=== PATIENT | female | born 2000 | race African-American/Black ===

== ENCOUNTER 2021-01-22 10:00 | Emergency (ER) | payer OTHER ==
--- NOTE | 2021-01-22 10:49 | RAD ---
EXAM: XR Knee Rt 4 View STANDARD PROVIDED CLINICAL HISTORY: Pain FINDINGS: There is no evidence for fracture or other acute osseous abnormality. Alignment appears anatomic. Harriet nt spaces appear preserved. IMPRESSION: No evidence for an acute osseous abnormality. If there is persistent clinical concern, conservative m anagement and follow-up imaging advised.
== END 2021-01-22 11:07 | disposition home or self-care (01) ==
LOC: NAV ERS 10:00
DX: S83.91XA Sprain of unspecified site of right knee, initial encounter (principal); V47.5XXA Car driver injured in collision with fixed or stationary object in traffic accident, initial encounter

== ENCOUNTER 2021-01-24 22:20 | Emergency (ER) | payer OTHER | END 2021-01-24 22:47 | disposition home or self-care (01) | LOC: NAV ERS 22:20 | DX: R51.9 Headache, unspecified (principal) | CPT/HCPCS: 99283 ==

== ENCOUNTER 2024-12-09 07:04 | Emergency (ER) | payer OTHER, SELFPAY | END 2024-12-09 07:44 | disposition home or self-care (01) | LOC: NAV ERS 07:04 | DX: J11.1 Influenza due to unidentified influenza virus with other respiratory manifestations (principal) | CPT/HCPCS: 99283 ==